=== PATIENT | male | born 1950 | race Hispanic/Latino ===

== ENCOUNTER → 2017-12-22 | Outpatient (CLI) | payer MEDICARE, MEDICAID | END | disposition home or self-care (01) | LOC: OIH 09:56 | PROVIDERS: ATTEND Internal Medicine Medical Oncology | DX: Z01.818 Encounter for other preprocedural examination (principal) | CPT/HCPCS: 71046 ==

== ENCOUNTER → 2019-03-18 | Outpatient (CLI) | payer MEDICARE | END | disposition home or self-care (01) | LOC: RAH 09:38 | PROVIDERS: ATTEND Internal Medicine Gastroenterology | DX: K74.60 Unspecified cirrhosis of liver (principal) | CPT/HCPCS: 76700; 93975 ==

== ENCOUNTER → 2019-08-29 | Outpatient (CLI) | payer OTHER, MEDICARE | END | disposition home or self-care (01) | LOC: RAH 08:41 | PROVIDERS: ATTEND Internal Medicine Gastroenterology | DX: K74.60 Unspecified cirrhosis of liver (principal); K76.89 Other specified diseases of liver | CPT/HCPCS: 76700; 93975 ==

== ENCOUNTER 2020-10-20 01:08 | Inpatient (IN) | payer OTHER, MEDICARE ==
[~2020-10-20] VITALS: Ht 165.1 cm; Wt 84.4 kg
[2020-10-20 01:37] LABS: BASOPHILS % (AUTO) 0.1 % (0.0-5.0); EOSINOPHILS % (AUTO) 0.1 % (0.0-8.0); LYMPHOCYTES % (AUTO) 2.5 % (21.0-51.0); MEAN CORPUSCULAR HEMOGLOBIN 35.9 pg (27.0-33.0); MEAN CORPUSCULAR HGB CONC 34.6 g/dL (32.0-36.0); MEAN CORPUSCULAR VOLUME 103.5 fL (79-99); MONOCYTES % (AUTO) 6.5 % (3.0-13.0); NEUTROPHILS % (AUTO) 89.5 % (40.0-77.0); PLATELET COUNT (AUTO) 53 K/uL (130-400); RED BLOOD CELL COUNT(AUTO) 3.96 MIL/uL (4.50-6.20); RED CELL DISTRIBUTION WIDTH 16.2 % (11.0-15.5); WHITE BLOOD COUNT (AUTO) 14.5 K/uL (4.8-10.8)
[2020-10-20 01:41] LABS: INR 1.32 (0.85-1.15)
[2020-10-20 01:42] LABS: PARTIAL THROMBOPLASTIN TIME 26.6 SEC (26.3-35.5)
[2020-10-20 01:48] LABS: CREATINE KINASE, TOTAL 88 U/L (21-232)
[2020-10-20 01:56] LABS: ALBUMIN 2.3 g/dL (3.5-5.0); BILIRUBIN,TOTAL 3.9 mg/dL (0.2-1.0); CREATININE 1.3 mg/dL (0.5-1.5); POTASSIUM 3.4 mmol/L (3.5-5.1); TOTAL PROTEIN, SERUM 6.5 g/dL (6.0-8.3)
[2020-10-20 01:56] LABS: AMMONIA 51 umol/L (11-32)
[2020-10-20 02:00] LABS: B-TYPE NATRIURETIC PEPTIDE 21 pg/mL (0-100)
[2020-10-20] MEDS ORDERED: ONDANSETRON 4MG INJ IV PRN (04:30)
[2020-10-20] MEDS ORDERED: ACETAMINOPHEN 325 MG TAB PO PRN ×2 (04:30)
[2020-10-20] MEDS ORDERED: ZOSYN 3.375GM+NS 50ML 50 ML IV ONE (04:59)
[2020-10-20 05:30] VITALS: BP 116/71
[2020-10-20] MEDS ORDERED: SPIR100T5 PO (06:28)
[2020-10-20] MEDS ORDERED: FOLI0.8T3 PO (06:28)
[2020-10-20] MEDS ORDERED: CYAN250014 PO (06:28)
[2020-10-20] MEDS ORDERED: LORA10TA7 PO (06:28)
[2020-10-20] MEDS ORDERED: OMEP40CA21 PO (06:28)
[2020-10-20] MEDS ORDERED: RIFA550T PO (06:28)
[2020-10-20] MEDS ORDERED: LACT10SO9 PO (06:28)
[2020-10-20] MEDS ORDERED: PRED10TA3 PO (06:28)
[2020-10-20] MEDS ORDERED: FURO20TA4 PO (06:28)
[2020-10-20] MEDS ORDERED: CHOL500050 PO (06:28)
[2020-10-20] MEDS ORDERED: metoprolol PO (06:28)
[2020-10-20] MEDS ORDERED: [UNRECOGNIZED DRUG - OTHER] NASAL (06:28)
[2020-10-20] MEDS ORDERED: VITA1CAP85 PO (06:28)
[2020-10-20 08:00] VITALS: BP 120/69
[2020-10-20] MEDS ORDERED: PHYTONADIONE 10 MG/1 ML AMP IM SCH (08:34)
[2020-10-20] MEDS: FUROSEMIDE 40MG VIAL IVP SCH ×4 (09:00→20:03)
[2020-10-20] MEDS: FAMOTIDINE 20MG VIAL IV SCH (09:25)
[2020-10-20] MEDS: FOLIC ACID 1 MG TABLET PO SCH (09:26)
[2020-10-20] MEDS: SPIRONOLACTONE 25 MG TAB PO SCH ×2 (09:26→20:03)
[2020-10-20] MEDS: VITAMIN B COMPLEX 1 CAPSULE PO SCH (09:26)
[2020-10-20] MEDS: RIFAXIMIN 550 MG TABLET PO SCH ×2 (09:26→20:04)
[2020-10-20] MEDS: LACTULOSE 20 GM/30 ML UDCUP PO SCH ×2 (09:27→20:04)
[2020-10-20] MEDS ORDERED: POTASSIUM CHLORIDE 10% ELIXIR 20 MEQ/15 ML UDCUP PO PRN (11:00)
[2020-10-20] MEDS ORDERED: POTASSIUM CHLORIDE 20MEQ/100ML 100 ML IV PRN (11:00)
[2020-10-20 12:00] VITALS: BP 126/81
[2020-10-20] MEDS: ZOSYN 3.375GM+NS 50ML 50 ML IV SCH ×2 (13:34→20:03)
[2020-10-20] MEDS: KCL 20 MEQ ERTAB PO PRN ×3 (13:44→20:06)
[2020-10-20 16:00] VITALS: BP 105/73
[2020-10-20 20:00] VITALS: BP 96/69
[2020-10-20] MEDS ORDERED: PHARMACY COMMUNICATION MISC SCH (21:15)
[2020-10-20] MEDS ORDERED: DESMOPRESSIN ACETATE 4 MCG/ML 1ML AMP IVP SCH (21:30)
[2020-10-20] MEDS ORDERED: DEXAMETHASONE SOD PHOSPHATE 4 MG/ML 1ML VIAL ONE (21:37)
[2020-10-20] MEDS ORDERED: DESMOPRESSIN ACETATE 4 MCG/ML 1ML AMP ONE (21:39)
[2020-10-21] VITALS: BP 117/72
[2020-10-21] MEDS: ZOSYN 3.375GM+NS 50ML 50 ML IV SCH (03:18)
[2020-10-21 04:00] VITALS: BP 98/57
[2020-10-21 05:59] LABS: CREATININE 1.3 mg/dL (0.5-1.5); POTASSIUM 3.4 mmol/L (3.5-5.1)
[2020-10-21 06:07] LABS: BASOPHILS % (AUTO) 0.2 % (0.0-5.0); EOSINOPHILS % (AUTO) 0.8 % (0.0-8.0); HEMATOCRIT 36.4 % (42-54); LYMPHOCYTES % (AUTO) 3.5 % (21.0-51.0); MEAN CORPUSCULAR HEMOGLOBIN 36.4 pg (27.0-33.0); MEAN CORPUSCULAR HGB CONC 35.2 g/dL (32.0-36.0); MEAN CORPUSCULAR VOLUME 103.4 fL (79-99); MONOCYTES % (AUTO) 9.3 % (3.0-13.0); NEUTROPHILS % (AUTO) 84.8 % (40.0-77.0); PLATELET COUNT (AUTO) 32 K/uL (130-400); RED BLOOD CELL COUNT(AUTO) 3.52 MIL/uL (4.50-6.20); RED CELL DISTRIBUTION WIDTH 16.5 % (11.0-15.5); WHITE BLOOD COUNT (AUTO) 12.6 K/uL (4.8-10.8)
[2020-10-21] MEDS: KCL 20 MEQ ERTAB PO PRN ×3 (06:09→15:23)
[2020-10-21 06:10] LABS: INR 1.4 (0.85-1.15); PROTHROMBIN TIME 14.8 SEC (9.6-11.6)
[2020-10-21 06:11] LABS: PARTIAL THROMBOPLASTIN TIME 32.9 SEC (26.3-35.5)
[2020-10-21 06:16] LABS: TOTAL PROTEIN, SERUM 5.8 g/dL (6.0-8.3)
[2020-10-21] MEDS ORDERED: [UNRECOGNIZED DRUG - OTHER] IJ SCH (06:30)
[2020-10-21] MEDS ORDERED: DESMOPRESSIN IJ SCH ×2 (06:30→12:15)
[2020-10-21 08:00] VITALS: BP 103/65
[2020-10-21] MEDS: RIFAXIMIN 550 MG TABLET PO SCH ×2 (08:08→19:47)
[2020-10-21] MEDS: FOLIC ACID 1 MG TABLET PO SCH (08:08)
[2020-10-21] MEDS: VITAMIN B COMPLEX 1 CAPSULE PO SCH (08:08)
[2020-10-21] MEDS: FAMOTIDINE 20MG VIAL IV SCH (08:09)
[2020-10-21] MEDS: SPIRONOLACTONE 25 MG TAB PO SCH ×2 (08:09→19:47)
[2020-10-21] MEDS: FUROSEMIDE 40MG VIAL IVP SCH ×2 (08:10→19:47)
[2020-10-21] MEDS: LACTULOSE 20 GM/30 ML UDCUP PO SCH ×2 (08:12→19:32)
[2020-10-21 12:00] VITALS: BP 103/73
[2020-10-21] MEDS ORDERED: [UNRECOGNIZED DRUG - OTHER] IJ SCH (12:15)
[2020-10-21] MEDS: CEFTRIAXONE 1G VIAL IVP SCH (12:53)
[2020-10-21] MEDS: METOPROLOL TARTRATE 25 MG TAB PO SCH ×2 (15:23→19:32)
[2020-10-21 16:00] VITALS: BP 107/64
[2020-10-21 19:50] VITALS: BP 95/53
[2020-10-22] VITALS (11 sets, daily range): BP systolic 88–119; BP diastolic 48–64
[2020-10-22 05:12] LABS: BASOPHILS % (AUTO) 0.3 % (0.0-5.0); EOSINOPHILS % (AUTO) 1.6 % (0.0-8.0); HEMATOCRIT 33.9 % (42-54); LYMPHOCYTES % (AUTO) 5.6 % (21.0-51.0); MEAN CORPUSCULAR HEMOGLOBIN 36.2 pg (27.0-33.0); MEAN CORPUSCULAR HGB CONC 34.5 g/dL (32.0-36.0); MONOCYTES % (AUTO) 9.3 % (3.0-13.0); NEUTROPHILS % (AUTO) 81.5 % (40.0-77.0); PLATELET COUNT (AUTO) 28 K/uL (130-400); RED BLOOD CELL COUNT(AUTO) 3.23 MIL/uL (4.50-6.20); RED CELL DISTRIBUTION WIDTH 16.6 % (11.0-15.5); WHITE BLOOD COUNT (AUTO) 9.7 K/uL (4.8-10.8)
[2020-10-22 05:24] LABS: ALBUMIN 1.7 g/dL (3.5-5.0); BILIRUBIN,TOTAL 4.9 mg/dL (0.2-1.0); CREATININE 1.4 mg/dL (0.5-1.5); POTASSIUM 3.8 mmol/L (3.5-5.1); TOTAL PROTEIN, SERUM 5.2 g/dL (6.0-8.3)
[2020-10-22] MEDS: RIFAXIMIN 550 MG TABLET PO SCH ×2 (10:00→20:37)
[2020-10-22] MEDS: FUROSEMIDE 40MG VIAL IVP SCH ×2 (10:00→20:38)
[2020-10-22] MEDS: VITAMIN B COMPLEX 1 CAPSULE PO SCH (10:00)
[2020-10-22] MEDS: FOLIC ACID 1 MG TABLET PO SCH (10:00)
[2020-10-22] MEDS: METOPROLOL TARTRATE 25 MG TAB PO SCH ×2 (10:01→20:37)
[2020-10-22] MEDS: SPIRONOLACTONE 25 MG TAB PO SCH ×2 (10:01→20:37)
[2020-10-22] MEDS: LACTULOSE 20 GM/30 ML UDCUP PO SCH ×2 (10:02→20:38)
[2020-10-22] MEDS: FAMOTIDINE 20MG VIAL IV SCH (10:02)
[2020-10-22] MEDS: CEFTRIAXONE 1G VIAL IVP SCH (13:16)
[2020-10-22] MEDS ORDERED: ALBUMIN (HUMAN) 25% 200 ML IV SCH (17:45)
[2020-10-22 18:05] LABS: APPEARANCE BODY FLUID SLIGHTLY CLOUDY (CLEAR); COLOR,BODY FLUID YELLOW (LT YELLOW); SPECIMENTYPE,BODY FLUID ASCITES; TOTAL VOLUME,BODY FLUID 6000 mL
[2020-10-22 18:06] LABS: BODY FLUID RBC 675 /cu. mm.; BODY FLUID WBC 39 /cu. mm.
[2020-10-22 18:50] LABS: BF LYMPHOCYTE 2 %; BF MONOCYTE 9 %
[2020-10-23 00:35] VITALS: BP 95/53
[2020-10-23 05:02] LABS: BASOPHILS % (AUTO) 0.2 % (0.0-5.0); EOSINOPHILS % (AUTO) 1.4 % (0.0-8.0); HEMATOCRIT 26.2 % (42-54); LYMPHOCYTES % (AUTO) 7.5 % (21.0-51.0); MEAN CORPUSCULAR HEMOGLOBIN 35.7 pg (27.0-33.0); MEAN CORPUSCULAR VOLUME 105.2 fL (79-99); MONOCYTES % (AUTO) 10.3 % (3.0-13.0); NEUTROPHILS % (AUTO) 79.7 % (40.0-77.0); PLATELET COUNT (AUTO) 50 K/uL (130-400); RED BLOOD CELL COUNT(AUTO) 2.49 MIL/uL (4.50-6.20); RED CELL DISTRIBUTION WIDTH 16.3 % (11.0-15.5); WHITE BLOOD COUNT (AUTO) 4.3 K/uL (4.8-10.8)
[2020-10-23 05:19] LABS: ALBUMIN 2.5 g/dL (3.5-5.0); BILIRUBIN,TOTAL 5.5 mg/dL (0.2-1.0); CREATININE 1.3 mg/dL (0.5-1.5); POTASSIUM 3.3 mmol/L (3.5-5.1); TOTAL PROTEIN, SERUM 5.1 g/dL (6.0-8.3)
[2020-10-23 05:40] VITALS: BP 98/54
[2020-10-23] MEDS: METOPROLOL TARTRATE 25 MG TAB PO SCH ×2 (09:00→09:54)
[2020-10-23] MEDS: FAMOTIDINE 20MG VIAL IV SCH (09:53)
[2020-10-23] MEDS: FUROSEMIDE 40MG VIAL IVP SCH (09:53)
[2020-10-23] MEDS: SPIRONOLACTONE 25 MG TAB PO SCH (09:54)
[2020-10-23] MEDS: RIFAXIMIN 550 MG TABLET PO SCH (09:54)
[2020-10-23] MEDS: VITAMIN B COMPLEX 1 CAPSULE PO SCH (09:54)
[2020-10-23] MEDS: LACTULOSE 20 GM/30 ML UDCUP PO SCH (09:54)
[2020-10-23] MEDS: FOLIC ACID 1 MG TABLET PO SCH (09:55)
[2020-10-23] MEDS: CEFTRIAXONE 1G VIAL IVP SCH (11:37)
[2020-10-23] MEDS: KCL 20 MEQ ERTAB PO PRN (11:38)
[2020-11-26] MEDS ORDERED: [UNRECOGNIZED DRUG - CODE] MC (14:34)
== END 2020-10-23 14:45 | disposition home or self-care (01) | DRG 433 ==
LOC: EDH 01:08 → EDHIP 04:20 → 3DH 05:14
PROVIDERS: ADMIT Internal Medicine; ATTEND Internal Medicine
PROC: 30233R1 Transfusion of Nonautologous Platelets into Peripheral Vein, Percutaneous Approach (ICD-10-PCS; principal; 2020-10-22)
PROC: 0W9G3ZZ Drainage of Peritoneal Cavity, Percutaneous Approach (ICD-10-PCS; 2020-10-22)
DX: K70.31 Alcoholic cirrhosis of liver with ascites (principal); E87.1 Hypo-osmolality and hyponatremia; E44.0 Moderate protein-calorie malnutrition; E87.6 Hypokalemia; E87.70 Fluid overload, unspecified; D72.829 Elevated white blood cell count, unspecified; K72.90 Hepatic failure, unspecified without coma; I10 Essential (primary) hypertension; N28.9 Disorder of kidney and ureter, unspecified; D69.6 Thrombocytopenia, unspecified; N50.89 Other specified disorders of the male genital organs; F79 Unspecified intellectual disabilities; Z79.899 Other long term (current) drug therapy; Z87.891 Personal history of nicotine dependence; Z85.05 Personal history of malignant neoplasm of liver
CPT/HCPCS: 36415; 36430; 49083; 71045; 74176; 76604; 76705; 76870; 80053; 82105; 82140; 82550; 83735; 83880; 84145; 84484; 85025; 85049; 85610; 85730; 86850; 86900; 86901; 87071; 87205; 89051; 93005; C1729; G0378; J0696; J1100; J1940; J2543; J2597; J3430; J3490; P9034; P9046